=== PATIENT | male | born 1990 | race African-American/Black ===

== ENCOUNTER 2024-08-07 12:57 | Emergency (ER) | payer SELFPAY ==
[2024-08-07 12:59] VITALS: BP 160/113; PULSE 80; TEMP 37.3; O2SAT 99
[2024-08-07 13:07] LABS: Glucometer 117 mg/dL (74-106)
--- NOTE | 2024-08-07 13:07 | CT_ITS ---
The [address] [address] Patient Name: VIC AG MRN: [id number] date: 1990 Sex: M Assigned Patient Location: ED.MAIN Current Patient Location: ED.MAIN Accession/Order Number: [id number] Exam Date: 08/07/2024 15:10 Report Date: 08/07/2024 15:12 At the request of: HANS APPLE MD Procedure: CT abdomen pelvis w con CT ABDOMEN AND PELVIS WITH INTRAVENOUS CONTRAST: CLINICAL HISTORY: Intractable abdominal pain COMPARISON: None TECHNIQUE: Spiral images were obtained through the abdomen and pelvis following the administration of intravenous contrast. This CT exam was performed using one or more following dose reduction techniques: Automated exposure control, adjustment of the mA and/or kV according to patient size, or use of iterative reconstruction technique. FINDINGS: Lung Bases: [No acute findings] Organs:Liver gallbladder portal vein spleen pancreas and adrenal glands all appear unremarkable. No enhancing renal mass or hydronephrosis. Abdominal aorta is normal in caliber.[ GI: Stomach is grossly unremarkable. Small bowel appears nondilated. Appendix is normal. No acute colonic abnormality.[ Pelvis:[Urinary bladder prostate gland appear unremarkable.] Peritoneum/Retroperitoneum:No free air free fluid or lymphadenopathy.[ Abd wall/Bones:Abdominal wall demonstrates no acute findings. Osseous structures demonstrate no acute process.[ CT/CT abdomen pelvis w con IMPRESSION: No acute process. Impression dictated by: Jam Kc Jr., D.O. 08/07/2024 3:12 PM Dictation Location: [place] [address] Electronically authenticated by: [id number] Y Date: 08/07/2024 15:12
--- NOTE | 2024-08-07 13:09 | ED.GENADUL1 ---
HPI HPI - General Adult General Chief complaint: Abdominal Pain Stated complaint: ABDOMINAL PAIN Time Seen by Provider: 08/07/24 13:06 Source: patient Mode of arrival: ambulance Limitations: no limitations History of Present Illness HPI narrative: Patient is a 33-year-old male who is presenting to the ER today with chief complaint of intractable nausea vomiting, intractable abdominal pain. Patient works at [employer]. Patient came in by EMS. Patient was given 4 mg of Zofran IV prior to arrival. Patient does have an IV established the left AC. Patient has a history of acid reflux and gastritis. Patient states no medication for this daily. Patient does smoke marijuana daily. Last time he smoked marijuana was 2 days ago. Patient has been told before he has a history of cyclic nausea vomiting. He has no PCP. No GI doctor. He has never had a scope of the EGD or colonoscopy before. Patient has no recent trauma. He has a gallbladder and appendix. Patient has no recent traveling. Patient is writhing around the bed, pain out of proportion. Patient is hyperventilating. No trauma, no fall. Patient came in from work. Patient admits to using marijuana, denies any other illicit drug. Patient states he does not smoke alcohol, does smoke cigarettes. No other illicit drug use today per patient history. All systems are negative except as noted/marked. All systems reviewed and otherwise negative. Nurses note and vital signs reviewed and patient is not hypoxic. General: The patient appears in moderate to severe distress secondary to intractable nausea, pain, mild retching, writhing in the bed. Patient is resting uncomfortably on cart. Patient is not toxic, lethargic, or listless Skin: Warm, dry, no pallor noted. There is no rash noted. No petechiae, purpura. Head: Normocephalic, atraumatic Eye: Normal conjunctiva, no drainage, EOMI. PERRL Ears, Nose, Mouth, and Throat: oral mucosa is moist. Nares patent. Mouth without vesicles. Cardiovascular: Regular Rate and Rhythm, no murmur, gallop, rub Respiratory: Patient is in no distress, no accessory muscle use, lungs are clear to auscultation, no wheezing, rales or rhonchi Back: non-tender, no CVA tenderness bilaterally to percussion. No CT LS midline pain GI: Patient has moderate tenderness to palpation to bilateral upper and lower quadrants. Mild periumbilical pain. Patient is flexing his abdominal muscles secondary to pain. No flank pain bilateral. No CVA tenderness bilateral. No suprapubic tenderness to palpation. Patient does have bowel sounds x 4. No pulsatile mass, no masses appreciated. No rebound, mod guarding, mild rigidity noted. No distention. Musculoskeletal: Patient has full range of motion of all of the extremities, no motor, sensory, or focal neurological deficits Neurological: A&O x4, normal speech Psychiatric: Agitated secondary to pain and discomfort. Related Data Previous Rx's ?Medication ?Instructions ?Recorded dicyclomine 20 mg tablet 20 mg PO TID PRN abdominal pain #7 08/07/24 tabs ondansetron 4 mg disintegrating 4 mg PO Q4H PRN nausea and 08/07/24 tablet vomiting 3 days #6 tabs prochlorperazine maleate 10 mg 10 mg PO Q8H PRN nausea and 08/07/24 tablet (Compazine) vomiting 3 days #10 tabs Allergies Allergy/AdvReac Type Severity Reaction Status Date / Time No Known Drug Allergies Allergy Verified 08/07/24 13:04 Opioid HPI Opioid Management Most Recent Opioid Data: Ur Phencyclidine Scrn, (NEGATIVE) Negative Today, 13:15 PFSH PFSH Social History Little interest or pleasure in doing things: not at all Feeling down, depressed, or hopeless: not at all Exam Constitutional Vital Signs, click to edit/add: Last Vital Signs Temp 99.1 F 08/07/24 12:59 Pulse 68 08/07/24 16:40 Resp 18 08/07/24 16:40 BP 150/100 H 08/07/24 16:40 Pulse Ox 100 08/07/24 16:40 O2 Del Method Room Air 08/07/24 16:40 Course Vital Signs Vital signs: Vital Signs Temperature 99.1 F 08/07/24 12:59 Pulse Rate 80 08/07/24 12:59 Respiratory Rate 16 08/07/24 12:59 Blood Pressure 160/113 H 08/07/24 12:59 Pulse Oximetry 99 08/07/24 12:59 Oxygen Delivery Method Room Air 08/07/24 12:59 Temperature 99.1 F 08/07/24 12:59 Pulse Rate 68 08/07/24 16:40 Respiratory Rate 18 08/07/24 16:40 Blood Pressure 150/100 H 08/07/24 16:40 Pulse Oximetry 100 08/07/24 16:40 Oxygen Delivery Method Room Air 08/07/24 16:40 Medical Decision Making [facility] Narrative Medical decision making narrative: Patient seen and examined: Patient is given IV fluids, multiple medications for nausea and abdominal pain. Lab testing, CT of the abdomen pelvis. Differential diagnosis includes but is not limited to: Abdominal pain, gastritis, biliary colic, cholecystitis, appendicitis, cystitis, kidney stone, cyclic nausea vomiting, gastroenteritis Diagnostics and management: Patient will have laboratory studies Relevant laboratory interpretation: White blood cell count of 15, patient's LFTs, kidney function showed no acute findings. Drug screen positive for marijuana which she admitted to. Patient blood sugar is slightly elevated, no bandemia. Radiological studies: Please see the formal radiological report. CT of the abdomen pelvis shows no acute findings. Reevaluation: 1411 patient's nausea and vomiting is still present but improved. Patient's pain has improved, but he still rolling in the bed. Patient will be given a dose of IV Valium 2 mg. Patient has elevated white blood cell count of 15, marijuana positive, no other significant acute abnormalities. Patient is getting maintenance fluids, has had 1 L of IV fluid. Patient still pending CT. Shared decision making: I discussed with the patient the necessary laboratory findings and radiological findings. Social barriers to healthcare: There are no food insecurities, there is no issue with transportation, there are no insurance barriers. Disposition: I discussed with the patient the findings of his lab test, urine test, positive marijuana, and normal CT of the abdomen pelvis. 10 minutes was done at bedside on education of marijuana use and cyclic nausea and vomiting. Patient has heard this before and is told that he has had this before. Education was also done on gastritis and acid reflux medications he should be taking [id number]. Patient blood pressure has been elevated, patient also had education for 5 minutes on elevated blood pressure. He understands he needs to create a blood pressure log, recording this twice a day for the next 1 to 2 weeks and if blood pressure consistently elevated over 130/80, patient is a follow-up with and establish a PCP for blood pressure medication management. At discharge patient was having nausea and vomiting again, he is given another dose of Zofran. Patient was sent home with prescriptions for Zofran, Compazine and Bentyl. Patient will follow-up with PCP that he needs to establish. Patient understands the importance of managing blood pressure to help prevent cardiovascular risks, including heart attack and stroke. Lab Data Labs: Lab Results 08/07/24 08/07/24 08/07/24 Range/Units 13:05 13:15 13:27 WBC 15.4 H (4.0-11.0) 10^3/uL RBC 4.80 (4.70-6.10) 10^6/uL Hgb 15.3 (14.0-18.0) g/dL Hct 42.3 (42.0-54.0) % MCV 88.1 (80.0-94.0) fL MCH 31.9 (25.9-34.0) pg MCHC 36.2 H (29.9-35.2) g/dL RDW 12.5 (11.0-15.0) % Plt Count 287 (150-450) 10^3/uL MPV 10.2 (9.5-13.5) fL Neut % (Auto) 87.0 H (43.0-75.0) % Lymph % (Auto) 8.4 L (20.5-60.0) % Caroline % (Auto) 4.1 (1.7-12.0) % Eos % (Auto) 0.0 L (0.9-7.0) % Baso % (Auto) 0.2 (0.2-2.0) % Neut # (Auto) 13.4 H (1.4-6.5) 10^3/uL Lymph # (Auto) 1.3 (1.2-3.8) 10^3/uL Caroline # (Auto) 0.6 (0.3-0.8) 10^3/uL Eos # (Auto) 0.0 (0.0-0.7) 10^3/uL Baso # (Auto) 0.0 (0.0-0.1) 10^3/uL Abs Immat Gran (auto) 0.05 H (0.00-0.03) 10^3/uL Imm/Tot Granulo (auto) 0.3 (0.0-0.5) % Sodium 140 (136-145) mmol/L Potassium 3.7 (3.5-5.1) mmol/L Chloride 102 (98-107) mmol/L Carbon Dioxide 28.8 (21.0-32.0) mmol/L Anion Gap 12.9 BUN 8.0 (7.0-18.0) mg/dL Creatinine 1.01 (0.70-1.30) mg/dL Est GFR ( Amer) >60 (>=60 mL/min/1.73m^2) Est GFR (Non-Af Amer) >60 (>=60 mL/min/1.73m^2) BUN/Creatinine Ratio 7.9 Glucose 120 H (74-106) mg/dL Lactate 2.0 (0.4-2.0) mmol/L Calcium 9.6 (8.5-10.1) mg/dL Total Bilirubin 0.8 (0.2-1.0) mg/dL AST 33 (15-37) U/L ALT 32 (16-63) U/L Alkaline Phosphatase 80 (46-116) U/L Troponin I High Sens 5.8 (4.0-76.1) pg/mL Total Protein 7.7 (6.4-8.2) g/dL Albumin 4.6 (3.4-5.0) g/dL Globulin 3.1 g/dL Albumin/Globulin Ratio 1.5 Lipase 19.0 (16.0-77.0) U/L Urine Color Lt. yellow (YELLOW) Urine Clarity Clear (CLEAR) Urine pH 8.5 (5.0-9.0) Ur Specific Mc[place]an 1.015 (1.005-1.025) Urine Protein Negative (NEG/TRACE) mg/dL Urine Glucose (UA) Negative (NEGATIVE) mg/dL Urine Ketones Negative (NEGATIVE) mg/dL Urine Occult Blood Negative (NEGATIVE) Urine Nitrite Negative (NEGATIVE) Urine Bilirubin Negative (NEGATIVE) Urine Urobilinogen 0.2 (0.2-1.0) EU/dL Ur Leukocyte Esterase Negative (NEGATIVE) Urine RBC 0-2 (0-2) #/HPF Urine WBC 0-2 A (NONE SEEN) #/HPF Ur Squamous Epith Cells Few A (NONE/RARE) #/LPF Urine Crystals Seen A (None Seen) #/HPF Amorphous Sediment Many Urine Bacteria Trace A (NONE SEEN) #/HPF Urine Casts None seen (NONE SEEN) #/LPF Urine Mucus Trace A (NONE SEEN) Ur Culture Indicated? No Urine Opiates Screen Negative (NEGATIVE) Ur Buprenorphine Scrn Negative (NEGATIVE) Ur Oxycodone Screen Negative (NEGATIVE) Urine Methadone Screen Negative (NEGATIVE) Ur Barbiturates Screen Negative (NEGATIVE) U Tricyclic Antidepress Negative (NEGATIVE) Ur Phencyclidine Scrn Negative (NEGATIVE) Ur Amphetamines Screen Negative (NEGATIVE) U Methamphetamines Scrn Negative (NEGATIVE) U Benzodiazepines Scrn Negative (NEGATIVE) Urine Cocaine Screen Negative (NEGATIVE) U Cannabinoids Screen Positive A (NEGATIVE) POC Glucose 117 H (74-106) mg/dL Discharge Plan Discharge Chief Complaint: Abdominal Pain Clinical Impression: Abdominal pain, Cyclical vomiting with nausea, Cannabis abuse, Gastritis Patient Disposition: Home, Self-Care Time of Disposition Decision: 16:58 Condition: Fair Prescriptions / Home Meds: New prochlorperazine maleate [Compazine] 10 mg tablet 10 mg PO Q8H PRN (Reason: nausea and vomiting) 3 Days Qty: 10 0RF dicyclomine 20 mg tablet 20 mg PO TID PRN (Reason: abdominal pain) Qty: 7 0RF ondansetron 4 mg tablet,disintegrating 4 mg PO Q4H PRN (Reason: nausea and vomiting) 3 Days Qty: 6 0RF Print Language: Hebrew Instructions: Gastritis (ED), Acute Nausea and Vomiting (ED), Cannabis Use Disorder (ED), Abdominal Pain (ED) Additional Instructions: Stop smoking marijuana. If you stop smoking marijuana today, you could still have ongoing symptoms of cyclic nausea vomiting and symptoms just like you had today for the next 3 months. Use nausea and belly cramping medication as needed. If you are having acid reflux or heartburn daily, start taking Pepcid daily. Use Maalox or Mylanta as needed for rescue medication; do not use Tums or Rolaids. Your blood pressure has been elevated in the ER today, this could be secondary to pain. However you need to establish PCP for reevaluation and further testing. You have asymptomatic hypertension in the emergency room today. Either go to a drugstore, pharmacy, or where she is to her or your doctors office to have your blood pressure checked intermittently. A better idea is to buy a blood pressure cuff at home that is appropriate size, the pharmacist can help make sure that you use size is appropriate. Take your blood pressure twice a day for the next 1 to 2 weeks. If your blood pressure is consistently elevated 130/80, follow-up with your PCP for medication changes or adjustment as indicated. If you are having any significant headache, severe chest pain or heaviness or tightness, shortness of breath, passing out, or any other acute symptoms, please return to the ER for further evaluation or if you have any other acute concerns. Referrals: Luis Eduardo Lozano MD [Physician, Family Practice] - 1 week Physician,Non-StaffMD [Primary Care Provider] - 1 week Discharge Date/Time: 08/07/24 18:07
[2024-08-07] MEDS: DICYCLOMINE HCL 20 MG/2 ML VIAL IM (13:31)
[2024-08-07] MEDS: FAMOTIDINE/PF 20 MG/2 ML VIAL IV (13:31)
[2024-08-07] MEDS: ONDANSETRON PF 4 MG/2 ML VIAL IV ×2 (13:31→17:33)
[2024-08-07] MEDS: 0.9 % SODIUM CHLORIDE 1,000 ML 1000 ML IV (13:31)
[2024-08-07] MEDS: KETOROLAC TROMETHAMINE 30 MG/ML VIAL 15 MG IVP (13:31)
[2024-08-07] MEDS: PROCHLORPERAZINE 10 MG/2 ML VIAL IV (13:32)
[2024-08-07 13:46] LABS: Basophils Percent Auto 0.2 % (0.2-2.0); Hematocrit 42.3 % (42.0-54.0); Hemoglobin 15.3 g/dL (14.0-18.0); Immature Granulocytes Abs Auto 0.05 10^3/uL (0.00-0.03); Immature Granulocytes Pct Auto 0.3 % (0.0-0.5); Lymphocytes Absolute Auto 1.3 10^3/uL (1.2-3.8); Lymphocytes Percent Auto 8.4 % (20.5-60.0); Mean Corpuscular HGB Conc 36.2 g/dL (29.9-35.2); Mean Corpuscular Hemoglobin 31.9 pg (25.9-34.0); Mean Corpuscular Volume 88.1 fL (80.0-94.0); Mean Platelet Volume 10.2 fL (9.5-13.5); Monocytes Absolute Auto 0.6 10^3/uL (0.3-0.8); Monocytes Percent Auto 4.1 % (1.7-12.0); Neutrophils Absolute Auto 13.4 10^3/uL (1.4-6.5); Platelet Count 287 10^3/uL (150-450); Red Cell Distribution Width 12.5 % (11.0-15.0); White Blood Count 15.4 10^3/uL (4.0-11.0)
[2024-08-07 13:52] LABS: Bilirubin Urine NEGATIVE (NEGATIVE); Blood Urine NEGATIVE (NEGATIVE); Clarity Urine CLEAR (CLEAR); Color Urine LT. YELLOW (YELLOW); Glucose Urine UA NEGATIVE (NEGATIVE); Ketones Urine NEGATIVE (NEGATIVE); Leukocyte Esterase Urine NEGATIVE (NEGATIVE); Nitrite Urine NEGATIVE (NEGATIVE); Protein Urine NEGATIVE (NEG/TRACE); Specific Gravity Urine 1.015 (1.005-1.025); Urobilinogen Urine 0.2 EU/dL (0.2-1.0); pH Urine 8.5 (5.0-9.0)
[2024-08-07 13:55] LABS: Alanine Aminotransferase 32 U/L (16-63); Albumin Globulin Ratio 1.5; Albumin Level 4.6 g/dL (3.4-5.0); Alkaline Phosphatase 80 U/L (46-116); Anion Gap 12.9; Aspartate Amino Transferase 33 U/L (15-37); BUN Creatinine Ratio 7.9; Bilirubin Total 0.8 mg/dL (0.2-1.0); Calcium 9.6 mg/dL (8.5-10.1); Carbon Dioxide 28.8 mmol/L (21.0-32.0); Chloride 102 mmol/L (98-107); Estimated GFR (African America >60 (>=60 mL/min/1.73m^2); Estimated GFR (Non-African Ame >60 (>=60 mL/min/1.73m^2); Globulin 3.1 g/dL; Glucose 120 mg/dL (74-106); Potassium 3.7 mmol/L (3.5-5.1); Sodium 140 mmol/L (136-145); Total Protein 7.7 g/dL (6.4-8.2)
[2024-08-07 13:58] LABS: Troponin I High Sensitivity 5.8 pg/mL (4.0-76.1)
[2024-08-07 14:01] LABS: Amphetamine Screen Urine NEGATIVE (NEGATIVE); Barbiturates Screen Urine NEGATIVE (NEGATIVE); Benzodiazepines Screen Urine NEGATIVE (NEGATIVE); Buprenorphine Screen Urine NEGATIVE (NEGATIVE); Cannabinoid Screen Urine POSITIVE (NEGATIVE); Cocaine Screen Urine NEGATIVE (NEGATIVE); Methadone Screen Urine NEGATIVE (NEGATIVE); Methamphetamines Screen Urine NEGATIVE (NEGATIVE); Opiate Screen Urine NEGATIVE (NEGATIVE); Oxycodone Screen Urine NEGATIVE (NEGATIVE); Phencyclidine Screen Urine NEGATIVE (NEGATIVE); Tricyclic Antidepressant Urine NEGATIVE (NEGATIVE)
[2024-08-07 14:16] LABS: Amorphous Sediment Urine MANY; Bacteria Urine TRACE #/HPF (NONE SEEN); Cast Seen? NONE SEEN #/LPF (NONE SEEN); Crystals Seen? Seen #/HPF (None Seen); Mucus Urine TRACE (NONE SEEN); RBC Urine 0-2 #/HPF (0-2); Squamous Epithelial Cell Urine FEW #/LPF (NONE/RARE); Urine Culture Indicated NO; WBC Urine 0-2 #/HPF (NONE SEEN)
[2024-08-07 14:19] VITALS: PULSE 88; O2SAT 99
[2024-08-07] MEDS: DIAZEPAM 10 MG/2 ML SYRINGE 2 MG IV (14:55)
[2024-08-07] MEDS: 0.9 % SODIUM CHLORIDE 1,000 ML 100 ML IV (14:56)
[2024-08-07 16:40] VITALS: BP 150/100; PULSE 68; O2SAT 100
== END 2024-08-07 18:07 | disposition home or self-care (01) ==
PROVIDERS: Emergency Provider Emergency Medicine
DX: R10.84 Generalized abdominal pain (principal); R11.15 Cyclical vomiting syndrome unrelated to migraine; F12.10 Cannabis abuse, uncomplicated; K29.70 Gastritis, unspecified, without bleeding; R11.2 Nausea with vomiting, unspecified
CPT/HCPCS: 36415; 74177; 80053; 80307; 81001; 83605; 83690; 84484; 85025; 96361; 96372; 96374; 96375; 96376; 99285; J0500; J0780; J1885; J2405; J3360; J3490; Q9967